=== PATIENT | female | born 1955 | race Hispanic/Latino ===

== ENCOUNTER 2017-02-26 08:41 | Emergency (ER) | payer MEDICAID ==
[2017-02-26 09:05] VITALS: BP 125/79
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
[2017-02-26] MEDS ORDERED: MOTRIN PO ONE (11:28)
--- NOTE | 2017-02-26 13:31 | XRay Report ---
Right forearm: History: Fall. Findings: No fracture, periosteal reaction or lytic lesion. Impression: Essentially negative right forearm.
--- NOTE | 2017-02-26 13:31 | XRay Report ---
Right elbow 3 views: History: Fall. Findings: No bony or articular abnormality. No fracture dislocation or soft tissue calcification. Impression: Essentially negative right elbow.
--- NOTE | 2017-02-26 13:32 | XRay Report ---
Right hand 3 views: History: Fall. Findings: No fracture, no previous radiation. Normal articular surfaces with mild arthritic changes of the distal interphalangeal joints. Impression: No evidence of acute fracture.
--- NOTE | 2017-02-26 13:32 | XRay Report ---
Right hip 2 views: History: Fall. Findings: No bony or articular abnormality. No fracture or dislocation. Impression: Essentially negative right hip. The
--- NOTE | 2017-02-26 13:33 | XRay Report ---
Right wrist 3 views: History: Fall. Findings: No fracture or dislocation. No acute abnormality. Impression: Essentially negative right wrist.
== END 2017-02-26 13:58 | disposition home or self-care (01) ==
LOC: ED 08:41
DX: S66.911A Strain of unspecified muscle, fascia and tendon at wrist and hand level, right hand, initial encounter (principal); I11.0 Hypertensive heart disease with heart failure; I50.30 Unspecified diastolic (congestive) heart failure; E11.9 Type 2 diabetes mellitus without complications; G43.909 Migraine, unspecified, not intractable, without status migrainosus; J45.909 Unspecified asthma, uncomplicated; J44.9 Chronic obstructive pulmonary disease, unspecified; E78.00 Pure hypercholesterolemia, unspecified; Z77.22 Contact with and (suspected) exposure to environmental tobacco smoke (acute) (chronic); Z79.82 Long term (current) use of aspirin; Z88.2 Allergy status to sulfonamides; Z88.8 Allergy status to other drugs, medicaments and biological substances; W01.0XXA Fall on same level from slipping, tripping and stumbling without subsequent striking against object, initial encounter; Y93.89 Activity, other specified; Y92.89 Other specified places as the place of occurrence of the external cause; Y99.8 Other external cause status
CPT/HCPCS: 99283

== ENCOUNTER 2017-08-14 18:22 | Emergency (ER) | payer MEDICAID ==
--- NOTE | 2017-08-14 18:43 | Emergency Department Report ---
Chief Complaint: Abdominal Pain Stated Complaint: ABDOMINAL PAIN Time Seen by Provider: 08/14/17 18:40 - HPI History of Present Illness: Patient 61-year-old female presents ED complaining of left-sided flank pain times today. She also admits intermittent shortness of breath. She denies fevers/chills/nausea/vomiting/chest pain, abdominal pain, dizziness or headache - ROS Review of Systems: as noted in HPI - Exam Vital Signs: Vital Signs 08/14/17 18:24 Temperature 97.8 F Pulse Rate 81 Physical Exam: GENERAL: Alert and oriented x3, no apparent distress, wheelchair ,atraumatic. LUNGS: Symetrical with respiration, No wheezing, no rales or crackles, CTAB. HEART: S1, S2 present, regular rate and rhythm without murmur, no rubs, no gallops. Non tender to palpation ABDOMEN: No organomegaly was noted,Positive bowel sounds, soft, and non- distended. . Nontender to palpation on all Quadrants, left sided CVA tenderness. BACK: Full range of motion, no spinal tenderness, nontender to palpation. MSE screening note: Focused history and physical exam performed. Due to findings the following was ordered: ED Medical Decision Making - Medical Decision Making Labs ordered. Patient is 61-year-old female in some mild distress due to pain Alert and oriented 3. Patient's recent activity physician. ED Disposition for MSE Condition: Stable Instructions: Abdominal Pain (ED)
[2017-08-14 19:16] LABS: Basophils % (Auto) 0.7 % (0.0-1.8); Eosinophils % (Auto) 1.5 % (0.0-4.3); Hematocrit 38.2 % (30.3-42.9); Hemoglobin 13.4 gm/dl (10.1-14.3); Mean Corpuscular HGB Conc 35 % (30-34); Mean Corpuscular Hemoglobin 31 pg (28-32); Mean Corpuscular Volume 88 fl (79-97); Platelet Count 347 K/mm3 (140-440); Red Blood Count 4.36 M/mm3 (3.65-5.03); Red Cell Distribution Width 13.7 % (13.2-15.2); White Blood Count 8.8 K/mm3 (4.5-11.0)
[2017-08-14 19:21] LABS: Alanine Aminotransferase 11 units/L (7-56); Albumin 3.7 g/dL (3.9-5); Albumin/Globulin Ratio 1.2 %; Alkaline Phosphatase 58 units/L (35-129); Anion Gap 21 mmol/L; BUN/Creatinine Ratio 24; Blood Urea Nitrogen 19 mg/dL (7-17); Calcium 9.2 mg/dL (8.4-10.2); Carbon Dioxide 20 mmol/L (22-30); Chloride 101.2 mmol/L (98-107); Glucose 124 mg/dL (65-100); Lipase 29 units/L (13-60); Potassium 4.6 mmol/L (3.6-5.0); Sodium 138 mmol/L (137-145); Total Protein 6.8 g/dL (6.3-8.2)
[2017-08-14 20:15] LABS: Bacteria,Urine 1+ /HPF (Negative); Bilirubin,Urine NEG (Negative); Blood,Urine NEG (Negative); Ketones,Urine NEG (Negative); Leukocyte Esterase,Urine SM (Negative); Nitrite,Urine NEG (Negative); Protein,Urine <15 mg/dL mg/dL (Negative); Urobilinogen,Urine < 2.0 mg/dL (<2.0)
--- NOTE | 2017-08-14 20:32 | XRay Report ---
FINAL REPORT PROCEDURE: XR CHEST ROUTINE 2V TECHNIQUE: PA and lateral chest radiographs were obtained. CPT 65011 HISTORY: sob COMPARISON: No prior studies are available for comparison. FINDINGS: Heart: Normal. Mediastinum/Vessels: Normal. Lungs/Pleural space: Normal. Bony thorax: No acute osseous abnormality. Other: IMPRESSION: Normal examination.
[2017-08-14] MEDS ORDERED: TYLENOL PO ONE (22:31)
[2017-08-14] MEDS ORDERED: TYLENOL ONE (22:34)
== END 2017-08-14 23:10 | disposition left against medical advice (07) ==
LOC: ED 18:22
DX: R10.9 Unspecified abdominal pain (principal); Z53.21 Procedure and treatment not carried out due to patient leaving prior to being seen by health care provider
CPT/HCPCS: 36415; 71020; 80053; 81001; 83690; 85025; 93005; 93010

== ENCOUNTER 2019-01-06 17:10 | Emergency (ER) | payer MEDICAID ==
[2019-01-06 18:06] VITALS: BP 123/77
--- NOTE | 2019-01-06 18:09 | Emergency Department Report ---
ED ENT HPI - General Chief complaint: Earache Stated complaint: (R) EAR INFECTION Time Seen by Provider: 01/06/19 18:03 Source: patient Mode of arrival: Ambulatory Limitations: No Limitations - History of Present Illness Initial comments: This is a 63-year-old female nontoxic well in appearance with no signs of distress presents to the ED with complaint of acute on chronic otitis media. Patient stated has a ENT doctor and is supposed to have surgery. Patient stated ear drum has been ruptured due to infection 2 years ago and this is why she is getting the surgery. 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 Denies any mastoid tenderness. Denies any fever, chills, headache, nausea, vomiting, chest pain or SOB. Denies any other complaints. Stated is unable to get ear drops due to ruptured ear drops and only gets PO antibiotics. MD complaint: ear pain -: days(s) Location: R ear Severity: mild Severity scale (0 -10): 8 Quality: aching Consistency: constant Improves with: none Worsens with: none Associated Symptoms: denies: fever, cough, gum swelling, toothache, pain with swallowing, sore throat, tinnitus, hearing loss, discharge from ear, rhinorrhea - Related Data Home Medications Medication Instructions Recorded Confirmed Last Taken ALBUTEROL NEB's [Proventil 0.083% 2.5 mg IH TID PRN 07/05/13 07/22/15 05/06/14 NEBS] Albuterol Sulfate [Albuterol 0.63% 0.63 mg IH TID PRN 07/05/13 07/22/15 05/06/14 NEBS] Omeprazole [Prilosec] 40 mg PO QDAY 07/05/13 07/22/15 05/06/14 ALBUTEROL Inhaler (OR & NICU) 2 puff IH QID PRN 11/04/13 07/22/15 05/06/14 [ProAir HFA Inhaler] Lidocaine Topical 5% [Xylocaine 1 applic TP TID 11/04/13 07/22/15 05/06/14 Topical 5%] Cymbalta 20 mg PO QDAY 07/22/15 07/22/15 Unknown Previous Rx's Medication Instructions Recorded Last Taken Type Ibuprofen [Motrin 600 MG tab] 600 mg PO Q8H PRN #40 tablet 04/24/15 Unknown Rx Ondansetron [Zofran TAB] 4 mg PO Q8HR PRN #20 tablet 04/24/15 Unknown Rx Aspirin [Aspirin BABY CHEW TAB] 81 mg PO QDAY #30 tab.chew 07/23/15 Unknown Rx Atorvastatin Calcium [Lipitor] 20 mg PO QHS #30 tab 07/23/15 Unknown Rx Fluticasone [Flonase] 100 mcg NS QDAY #1 bottle 07/23/15 Unknown Rx HYDROcodone/APAP 5-325 [Perdido 1 each PO Q6HR PRN #30 tablet 07/23/15 Unknown Rx 5-325 mg TAB] Pantoprazole [Protonix TAB] 40 mg PO DAILY #30 tablet 07/23/15 Unknown Rx levoFLOXacin [Levaquin] 750 mg PO QDAY #5 day 07/23/15 Unknown Rx Ibuprofen [Motrin 600 MG tab] 600 mg PO Q8H PRN #15 tablet 02/26/17 Unknown Rx Acetaminophen/Codeine [Tylenol 1 tab PO Q6H PRN #12 tab 01/06/19 Unknown Rx /Codeine # 3 tab] Amoxicillin/K Clav Tab [Augmentin 1 tab PO Q12HR #20 tab 01/06/19 Unknown Rx 875 mg] Allergies Allergy/AdvReac Type Severity Reaction Status Date / Time dicyclomine HCl [From Bentyl] Allergy Seizure Verified 07/22/15 06:47 metoclopramide HCl Allergy Seizure Verified 07/22/15 06:47 [From Reglan] Sulfa (Sulfonamide Allergy Shortness Verified 07/22/15 06:47 Antibiotics) of Breath topiramate [From Topamax] AdvReac Unknown Verified 07/22/15 06:47 other nausea med Allergy Seizure Uncoded 07/22/15 06:47 ED Dental HPI - General Chief complaint: Earache Stated complaint: (R) EAR INFECTION Time Seen by Provider: 01/06/19 18:03 Source: patient Mode of arrival: Ambulatory Limitations: No Limitations - Related Data Home Medications Medication Instructions Recorded Confirmed Last Taken ALBUTEROL NEB's [Proventil 0.083% 2.5 mg IH TID PRN 07/05/13 07/22/15 05/06/14 NEBS] Albuterol Sulfate [Albuterol 0.63% 0.63 mg IH TID PRN 07/05/13 07/22/1514 NEBS] Omeprazole [Prilosec] 40 mg PO QDAY 07/05/13 07/22/15 05/06/14 ALBUTEROL Inhaler (OR & NICU) 2 puff IH QID PRN 11/04/13 07/22/15 05/06/14 [ProAir HFA Inhaler] Lidocaine Topical 5% [Xylocaine 1 applic TP TID 11/04/13 07/22/15 05/06/14 Topical 5%] Cymbalta 20 mg PO QDAY 07/22/15 07/22/15 Unknown Previous Rx's Medication Instructions Recorded Last Taken Type Ibuprofen [Motrin 600 MG tab] 600 mg PO Q8H PRN #40 tablet 04/24/15 Unknown Rx Ondansetron [Zofran TAB] 4 mg PO Q8HR PRN #20 tablet 04/24/15 Unknown Rx Aspirin [Aspirin BABY CHEW TAB] 81 mg PO QDAY #30 tab.chew 07/23/15 Unknown Rx Atorvastatin Calcium [Lipitor] 20 mg PO QHS #30 tab 07/23/15 Unknown Rx Fluticasone [Flonase] 100 mcg NS QDAY #1 bottle 07/23/15 Unknown Rx HYDROcodone/APAP 5-325 [Perdido 1 each PO Q6HR PRN #30 tablet 07/23/15 Unknown Rx 5-325 mg TAB] Pantoprazole [Protonix TAB] 40 mg PO DAILY #30 tablet 07/23/15 Unknown Rx levoFLOXacin [Levaquin] 750 mg PO QDAY #5 day 07/23/15 Unknown Rx Ibuprofen [Motrin 600 MG tab] 600 mg PO Q8H PRN #15 tablet 02/26/17 Unknown Rx Acetaminophen/Codeine [Tylenol 1 tab PO Q6H PRN #12 tab 01/06/19 Unknown Rx /Codeine # 3 tab] Amoxicillin/K Clav Tab [Augmentin 1 tab PO Q12HR #20 tab 01/06/19 Unknown Rx 875 mg] Allergies Allergy/AdvReac Type Severity Reaction Status Date / Time dicyclomine HCl [From Bentyl] Allergy Seizure Verified 07/22/15 06:47 metoclopramide HCl Allergy Seizure Verified 07/22/15 06:47 [From Reglan] Sulfa (Sulfonamide Allergy Shortness Verified 07/22/15 06:47 Antibiotics) of Breath topiramate [From Topamax] AdvReac Unknown Verified 07/22/15 06:47 other nausea med Allergy Seizure Uncoded 07/22/15 06:47 ED Review of Systems ROS: Stated complaint: (R) EAR INFECTION Other details as noted in HPI Constitutional: denies: chills, fever Eyes: denies: eye pain, eye discharge, vision change ENT: ear pain. denies: throat pain Respiratory: denies: cough, shortness of breath, wheezing Cardiovascular: denies: chest pain, palpitations Endocrine: no symptoms reported Gastrointestinal: denies: abdominal pain, nausea, diarrhea Genitourinary: denies: urgency, dysuria, discharge Musculoskeletal: denies: back pain, joint swelling, arthralgia Skin: denies: rash, lesions Neurological: denies: headache, weakness, paresthesias Psychiatric: denies: anxiety, depression Hematological/Lymphatic: denies: easy bleeding, easy bruising ED Past Medical Hx - Past Medical History Previous Medical History?: Yes Hx Hypertension: Yes Hx Congestive Heart Failure: Yes (Diastolic) Hx Diabetes: Yes Hx Headaches / Migraines: Yes Hx Seizures: Yes (2008) Hx Psychiatric Treatment: Yes Hx Asthma: Yes Hx COPD: Yes (from second hand smoke) Additional medical history: high cholesterol, chronic back pain - Surgical History Past Surgical History?: Yes Hx Appendectomy: Yes Additional Surgical History: t&a, hysterectomy, back surgery, lumpectomy right breast, right kidney tumor removed - Social History Smoking Status: Never Smoker Substance Use Type: Prescribed - Medications Home Medications: Home Medications Medication Instructions Recorded Confirmed Last Taken Type ALBUTEROL NEB's [Proventil 0.083% 2.5 mg IH TID PRN 07/05/13 07/22/15 05/06/14 History NEBS] Albuterol Sulfate [Albuterol 0.63% 0.63 mg IH TID PRN 07/05/13 07/22/15 05/06/14 History NEBS] Omeprazole [Prilosec] 40 mg PO QDAY 07/05/13 07/22/15 05/06/14 History ALBUTEROL Inhaler (OR & NICU) 2 puff IH QID PRN 11/04/13 07/22/15 05/06/14 History [ProAir HFA Inhaler] Lidocaine Topical 5% [Xylocaine 1 applic TP TID 11/04/13 07/22/15 05/06/14 History Topical 5%] Ibuprofen [Motrin 600 MG tab] 600 mg PO Q8H PRN #40 tablet 04/24/15 07/22/15 Unknown Rx Ondansetron [Zofran TAB] 4 mg PO Q8HR PRN #20 tablet 04/24/15 07/22/15 Unknown Rx Cymbalta 20 mg PO QDAY 07/22/15 07/22/15 Unknown History Aspirin [Aspirin BABY CHEW TAB] 81 mg PO QDAY #30 tab.chew 07/23/15 Unknown Rx Atorvastatin Calcium [Lipitor] 20 mg PO QHS #30 tab 07/23/15 Unknown Rx Fluticasone [Flonase] 100 mcg NS QDAY #1 bottle 07/23/15 Unknown Rx HYDROcodone/APAP 5-325 [Perdido 1 each PO Q6HR PRN #30 tablet 07/23/15 Unknown Rx 5-325 mg TAB] Pantoprazole [Protonix TAB] 40 mg PO DAILY #30 tablet 07/23/15 Unknown Rx levoFLOXacin [Levaquin] 750 mg PO QDAY #5 day 07/23/15 Unknown Rx Ibuprofen [Motrin 600 MG tab] 600 mg PO Q8H PRN #15 tablet 02/26/17 Unknown Rx Acetaminophen/Codeine [Tylenol 1 tab PO Q6H PRN #12 tab 01/06/19 Unknown Rx /Codeine # 3 tab] Amoxicillin/K Clav Tab [Augmentin 1 tab PO Q12HR #20 tab 01/06/19 Unknown Rx 875 mg] ED Physical Exam - General Limitations: No Limitations General appearance: alert, in no apparent distress - Head Head exam: Present: atraumatic, normocephalic - Expanded ENT Exam Expanded Ear exam: Present: normal external inspection TM/Canal exam: Erythema: Right TM, Perforation: Right TM Mouth exam: Present: normal external inspection Teeth exam: Present: normal inspection Throat exam: Positive: normal inspection - Neck Neck exam: Present: normal inspection, full ROM - Extremities Exam Extremities exam: Present: normal inspection, full ROM - Back Exam Back exam: Present: normal inspection, full ROM - Neurological Exam Neurological exam: Present: alert, oriented X3 - Psychiatric Psychiatric exam: Present: normal affect, normal mood - Skin Skin exam: Present: warm, dry, intact, normal color. Absent: rash ED Course - Reevaluation(s) Reevaluation #1: 01/06/19 18:09 Patient is speaking in full sentences with no signs of distress noted. ED Medical Decision Making - Medical Decision Making Patient was instructed to Follow-up with a primary care doctor in 3-5 days or if symptoms worsen and continue return to emergency room as soon as possible. At time of discharge, the patient does not seem toxic or ill in appearance. No acute signs of distress noted. Patient agrees to discharge treatment plan of care. No further questions noted by the patient. Critical care attestation.: If time is entered above; I have spent that time in minutes in the direct care of this critically ill patient, excluding procedure time. ED Disposition Clinical Impression: Otitis media Qualifiers: Otitis media type: unspecified Chronicity: chronic Qualified Code(s): H66.90 - Otitis media, unspecified, unspecified ear Disposition: DC-01 TO HOME OR SELFCARE Is pt being admited?: No Does the pt Need Aspirin: No Condition: Stable Instructions: Otitis Media (ED), Acetaminophen/Codeine (By mouth) Additional Instructions: Follow-up with a primary care/ENT doctor in 2-3 days or if symptoms worsen and continue return to emergency room as soon as possible. Prescriptions: Amoxicillin/K Clav Tab [Augmentin 875 mg] 1 tab PO Q12HR #20 tab Acetaminophen/Codeine [Tylenol /Codeine # 3 tab] 1 tab PO Q6H PRN #12 tab PRN Reason: Pain , Severe (7-10) Referrals: PRIMARY MD VICKIE [Referring] - 3-5 Days LISANDRA LITTLEJOHN MD [Staff Physician] - 3-5 Days [facility] [place] [Outside] - 3-5 Days [facility] [Outside] - 3-5 Days MELISSA REES MD [Staff Physician] - 3-5 Days
== END 2019-01-06 18:19 | disposition home or self-care (01) ==
LOC: ED 17:10
DX: H66.91 Otitis media, unspecified, right ear (principal); I11.0 Hypertensive heart disease with heart failure; I50.9 Heart failure, unspecified; E11.9 Type 2 diabetes mellitus without complications; G43.909 Migraine, unspecified, not intractable, without status migrainosus; J44.9 Chronic obstructive pulmonary disease, unspecified; E78.00 Pure hypercholesterolemia, unspecified; M54.9 Dorsalgia, unspecified; G89.29 Other chronic pain; Z90.49 Acquired absence of other specified parts of digestive tract; Z88.1 Allergy status to other antibiotic agents; Z88.2 Allergy status to sulfonamides; Z88.5 Allergy status to narcotic agent; Z90.710 Acquired absence of both cervix and uterus; Z98.890 Other specified postprocedural states; Z79.82 Long term (current) use of aspirin
CPT/HCPCS: 99282

== ENCOUNTER 2021-08-01 10:36 | Outpatient (CLI) | payer MEDICAID ==
--- NOTE | 2021-08-01 13:51 | XRay Report ---
Lumbar spine-8 views INDICATION: BACK PAIN. COMPARISON: None. IMPRESSION: Normal alignment. Mild multilevel discogenic DJD and lower lumbar facet arthropathy. N o acute osseous or soft tissue abnormality. Signer Name: Bobby Kelsey MD Signed: 08/01/2021 1:47 PM Workstation Name: [id number]
== END 2021-08-01 10:37 | disposition home or self-care (01) ==
LOC: XRAY 10:36
PROVIDERS: ATTEND Orthopaedic Surgery
DX: M47.816 Spondylosis without myelopathy or radiculopathy, lumbar region (principal)
CPT/HCPCS: 72110

== ENCOUNTER 2021-08-22 10:57 | Outpatient (CLI) | payer MEDICAID ==
--- NOTE | 2021-08-22 12:02 | Magnetic Resonance Report ---
MRI lumbar spine without contrast INDICATION: Low back pain TECHNIQUE: Axial sagittal images FINDINGS: Alignment appears normal. Schmorl's nodes are seen in the lower thoracic spine. Conus appea rs normal. L1-L2: Disc desiccation without spinal canal narrowing or neuroforaminal narrowing. L2-L3: No spinal canal narrowing or neuroforaminal narrowing. L3-L4: Facet change without spinal canal narrowing or neuroforaminal narrowing. L4-L5: Facet change without spinal canal narrowing or neuroforaminal narrowing. L5-S1: Disc desiccation with posterior disc bulge. No significant neuroforaminal narrowing. There is a small left paracentral disc bulge/protrusion. IMPRESSION: Mild discogenic degenerative change throughout the lumbar spine. Small disc bulge/protrusion at L5-S1 . No significant neuroforaminal narrowing or canal narrowing. Signer Name: Fredo Jackson MD Signed: 08/22/2021 11:57 AM Workstation Name: [id number]
== END 2021-08-22 10:58 | disposition home or self-care (01) ==
LOC: MRI 10:57
PROVIDERS: ATTEND Orthopaedic Surgery
DX: M51.37 Other intervertebral disc degeneration, lumbosacral region (principal); M47.816 Spondylosis without myelopathy or radiculopathy, lumbar region
CPT/HCPCS: 72148